=== PATIENT | female | born 1935 | race Caucasian/White ===

== ENCOUNTER → 2019-06-21 | Outpatient (CLI) | payer MEDICARE ==
[~2019-06-21] MED LIST: ABAC300; ALBU90OI6; AMLO5 MT; ASPI81CH MT; BUDE10.22 INH; CALC1.25T PO; CHOL10002 PO; CYAN100 PO; ERGO400 PO; Ester-C 500 MG1 EACH PO; Fish Oil500 MG PO; GLIP2.5ER; GLIP2.5ER MT; Hydrochlorothia50 MG MT; LEVFLO250 PO; LISI20 MT; LOVA40 MT; METF500 MT; PROACE100 PO; PYRI100 PO; RXPROACE PO; TOCO400 PO; ZAFI20 MT; [UNRECOGNIZED DRUG - OTHER] TOP
== END | disposition home or self-care (01) ==
LOC: LAB SHORT 12:03 → PLD 12:03
DX: C44.01 Basal cell carcinoma of skin of lip (principal); C44.319 Basal cell carcinoma of skin of other parts of face
CPT/HCPCS: 88305

== ENCOUNTER → 2019-12-20 | Outpatient (CLI) | payer MEDICARE ==
[~2019-12-20] MED LIST changes: +METO25ER PO
== END | disposition home or self-care (01) ==
LOC: PLD 11:12 → LAB SHORT 11:12
DX: D04.62 Carcinoma in situ of skin of left upper limb, including shoulder (principal); L57.0 Actinic keratosis
CPT/HCPCS: 88305

== ENCOUNTER → 2020-03-19 | Outpatient (CLI) | payer MEDICARE | END | disposition home or self-care (01) | LOC: PLD 11:45 → LAB SHORT 11:45 | DX: D48.5 Neoplasm of uncertain behavior of skin (principal) | CPT/HCPCS: 88305 ==

== ENCOUNTER → 2020-08-10 | Outpatient (CLI) | payer MEDICARE ==
[2020-08-10 13:54] LABS: BASOPHILS ABSOLUTE AUTO 0.07 K/mm3 (0.00-0.23); BASOPHILS PERCENT AUTO 1 % (0-2); EOSINOPHILS PERCENT AUTO 5 % (0-6); Hematocrit 40.1 % (33.0-51.0); Hemoglobin 12.6 g/dL (11.5-16.0); IMMATURE GRAN ABSOLUTE AUTO 0.04 K/mm3 (0.00-0.10); IMMATURE GRAN PERCENT AUTO 0 % (0-1); LYMPHOCYTES ABSOLUTE AUTO 1.14 K/mm3 (0.84-5.20); LYMPHOCYTES PERCENT AUTO 10 % (21-46); MONOCYTES ABSOLUTE AUTO 0.92 K/mm3 (0.16-1.47); MONOCYTES PERCENT AUTO 8 % (4-13); Mean Corpuscular HGB 26.9 pg (26.0-34.0); Mean Corpuscular HGB Conc 31.4 g/dL (31.5-36.5); Mean Corpuscular Volume 86 fL (80-100); Mean Platelet Volume 9.7 fL (9.1-12.4); NEUTROPHILS ABSOLUTE AUTO 8.32 K/mm3 (1.96-9.15); NEUTROPHILS PERCENT AUTO 76 % (41-73); Platelet Count 243 K/mm3 (150-400); RDW Coefficient Variation 13.2 % (11.7-14.2); RDW Standard Deviation 41.2 fL (35.1-46.3); Red Blood Cell Count 4.68 M/mm3 (3.80-5.20); White Blood Cell Count 10.99 K/mm3 (4.00-11.30)
[2020-08-10 14:04] LABS: Albumin, Blood 3.6 g/dL (3.4-5.0); Bilirubin, Total 0.5 mg/dL (0.1-1.0); Bun/Creatinine Ratio 23.8 (12.0-20.0); Calcium, Blood 9.2 mg/dL (8.5-10.1); Creatinine, Blood 1.51 mg/dL (0.40-1.00); Globulin, Blood 3.6 g/dL (2.2-4.0); Potassium, Blood 4.3 mmol/L (3.5-5.5); Total Protein, Blood 7.2 g/dL (6.4-8.2)
== END | disposition home or self-care (01) ==
LOC: LAB SHORT 11:25 → LAB 11:25
PROVIDERS: Physician Assistant
DX: R10.84 Generalized abdominal pain (principal)
CPT/HCPCS: 80053; 85025

== ENCOUNTER 2020-11-20 10:26 | Day surgery (SDC) | payer MEDICARE ==
[~2020-11-20] VITALS: Ht 160 cm; Wt 56.3 kg
--- NOTE | 2020-11-20 12:14 | NUR ---
11/20/20 1214 Cara Sow ORAL SUCTIONING IN RECOVERY, PT ASLEEP WITH PRODUCTIVE COUGH. OXYGEN SATURATION RANGING FROM 87%-93%. PT DIFFICULT TO AROUSE. CONTINUED ORAL SUCTIONING. PT REPOSITIONED AND BOOSTED IN BED WITH THIS RN & PHYSICIAN. PT RESPONDS TO VERBAL STIMULI FOR SHORT AMOUNTS OF TIME. UNABLE TO OPEN EYES FOR ANY PERIOD OF TIME. PT CONTINUES TO COUGH, PRODUCING THICK TRANSPARENT YELLOW TINGED MUCUS. ORAL SUCTIONING, AND INSTURCTION TO OPEN EYES, DEEP BREATH & COUGH.
== END 2020-11-20 12:50 | disposition home or self-care (01) ==
LOC: ORSCSDS 10:26
PROVIDERS: Surgery
PROC: 0DB48ZX Excision of Esophagogastric Junction, Via Natural or Artificial Opening Endoscopic, Diagnostic (ICD-10-PCS; principal; 2020-11-20 11:30)
DX: K31.89 Other diseases of stomach and duodenum (principal); R93.3 Abnormal findings on diagnostic imaging of other parts of digestive tract; K22.2 Esophageal obstruction; I10 Essential (primary) hypertension; E78.00 Pure hypercholesterolemia, unspecified; E11.9 Type 2 diabetes mellitus without complications; Z79.82 Long term (current) use of aspirin; Z79.4 Long term (current) use of insulin; Z79.899 Other long term (current) drug therapy
CPT/HCPCS: 82947; 88305; J2704; J7120

== ENCOUNTER → 2021-02-25 | Outpatient (CLI) | payer MEDICARE | LOC: LAB SHORT 11:36 → LAB 11:36 | DX: D48.5 Neoplasm of uncertain behavior of skin (principal); L98.9 Disorder of the skin and subcutaneous tissue, unspecified | CPT/HCPCS: 88305 ==

== ENCOUNTER → 2021-06-25 | Outpatient (CLI) | payer MEDICARE | END | disposition home or self-care (01) | LOC: LAB SHORT 15:20 | DX: C44.319 Basal cell carcinoma of skin of other parts of face (principal); L57.0 Actinic keratosis | CPT/HCPCS: 88305 ==

== ENCOUNTER → 2021-08-06 | Outpatient (CLI) | payer MEDICARE | END | disposition home or self-care (01) | LOC: LAB SHORT 06:00 | DX: J45.909 Unspecified asthma, uncomplicated (principal); R93.89 Abnormal findings on diagnostic imaging of other specified body structures | CPT/HCPCS: 87070; 87205 ==

== ENCOUNTER → 2021-08-13 | Outpatient (CLI) | payer MEDICARE ==
[2021-08-13 16:48] LABS: Source, Urine Clean Catch
[2021-08-13 17:29] LABS: Appearance, Urine Clear (Clear); Bilirubin, Urine Neg (Neg); Blood, Urine Neg (Neg); Color, Urine Yellow (P-Yellow); Glucose Qualitative, Urine Neg (Neg); Ketones, Urine Neg (Neg); Leukocyte Esterase, Urine Neg (Neg); Nitrite, Urine Neg (Neg); Protein, Urine 2+ (Neg); Specific Gravity, Urine 1.015 (1.003-1.022); Urobilinogen, Urine NORM (Normal)
[2021-08-13 17:41] LABS: Bacteria Few /hpf; Red Blood Cells, Urine 0-2 /hpf (0-2); Squamous Epithelial Cells Few /hpf (Few); White Blood Cells, Urine 0-2 /hpf (0-5)
[2021-08-13 20:42] LABS: Creatinine, Urine Random 40.2 mg/dL (27.00-270.00); Protein/Creat Ratio, Ur Random 1.5
== END | disposition home or self-care (01) ==
LOC: LAB SHORT 12:00
PROVIDERS: Internal Medicine Nephrology
DX: N18.32 Chronic kidney disease, stage 3b (principal)
CPT/HCPCS: 81001; 82570; 84156

== ENCOUNTER → 2021-08-27 | Outpatient (CLI) | payer MEDICARE | END | disposition home or self-care (01) | LOC: LAB 08:23 → PLD 08:23 → LAB SHORT 08:23 | DX: L57.0 Actinic keratosis (principal) | CPT/HCPCS: 88305 ==

== ENCOUNTER 2022-04-24 09:23 | Emergency (ER) | payer MEDICARE ==
[~2022-04-24] VITALS: Ht 152.4 cm; Wt 49.9 kg
[2022-04-24 11:06] LABS: Influenza A, PCR NEGATIVE (NEGATIVE); Influenza B, PCR NEGATIVE (NEGATIVE); Resp Syncytial Virus, PCR NEGATIVE (NEGATIVE)
[2022-04-24 11:23] LABS: SARS-Cov-2 (COVID-19) PCR, MMC POSITIVE (NEGATIVE)
[2022-04-24] MEDS ORDERED: PAXLOVID 150-11 EACH PO (12:02)
== END 2022-04-24 10:20 | disposition home or self-care (01) ==
LOC: ER 09:23
PROVIDERS: Physician Assistant
DX: U07.1 COVID-19 (principal); E11.9 Type 2 diabetes mellitus without complications; I10 Essential (primary) hypertension; J45.909 Unspecified asthma, uncomplicated; Z79.899 Other long term (current) drug therapy
CPT/HCPCS: 0241U; 99282

== ENCOUNTER 2022-11-04 12:25 | Day surgery (SDC) | payer OTHER ==
[~2022-11-04 12:25] MED LIST changes: +PAXLOVID 150-11 EACH PO
== END 2022-11-04 12:42 | disposition home or self-care (01) ==
LOC: ORSCSDS 12:25
DX: H25.11 Age-related nuclear cataract, right eye (principal); Z53.9 Procedure and treatment not carried out, unspecified reason
CPT/HCPCS: J2001; J3301; J7040

== ENCOUNTER 2022-12-18 07:10 | Day surgery (SDC) | payer OTHER ==
[~2022-12-18] VITALS: Ht 152.4 cm; Wt 50.3 kg
[2022-12-18] MEDS ORDERED: ASPI81CH PO (07:41)
--- NOTE | 2022-12-18 07:53 | NUR ---
12/18/22 0753 Noe Rodriguez RIGHT EYE VERIFIED FOR PROCEDURE PER PT AND CONSENT. TETRACANE PLACED IN RIGHT EYE AT 0732. PLEGET FOAM PLACED IN RIGHT EYE AT 0733. PT TOLERATED WELL. CALL LIGHT WITHIN REACH.
[2022-12-18 08:55] VITALS: BP 124/74
--- NOTE | 2022-12-18 09:06 | NUR ---
12/18/22 0906 Saige Roth IV REMOVED, CANNULA INTACT. PT LACY WELL. IV SITE WNL.
== END 2022-12-18 09:34 | disposition home or self-care (01) ==
LOC: ORSCSDS 07:10
PROVIDERS: Ophthalmology
PROC: 08RJ3JZ Replacement of Right Lens with Synthetic Substitute, Percutaneous Approach (ICD-10-PCS; principal; 2022-12-18 08:30)
DX: E11.36 Type 2 diabetes mellitus with diabetic cataract (principal); H25.11 Age-related nuclear cataract, right eye; I12.9 Hypertensive chronic kidney disease with stage 1 through stage 4 chronic kidney disease, or unspecified chronic kidney disease; E11.22 Type 2 diabetes mellitus with diabetic chronic kidney disease; N18.30 Chronic kidney disease, stage 3 unspecified; E78.00 Pure hypercholesterolemia, unspecified; D50.9 Iron deficiency anemia, unspecified; Z79.82 Long term (current) use of aspirin; Z79.4 Long term (current) use of insulin; Z79.899 Other long term (current) drug therapy
CPT/HCPCS: 82947; J2250; J3010; J3301; J7040; V2632

== ENCOUNTER 2022-12-25 07:07 | Day surgery (SDC) | payer OTHER ==
[~2022-12-25] VITALS: Ht 157.5 cm; Wt 50.7 kg
[~2022-12-25 07:07] MED LIST changes: +ASPI81CH PO
--- NOTE | 2022-12-25 07:39 | NUR ---
12/25/22 0739 Rama Vilchis TETRACAINE PLACED IN LEFT EYE AT 0728 PLEDGET PLACED IN LEFT EYE AT 0730 PATIENT TOLERATED WELL
--- NOTE | 2022-12-25 09:33 | NUR ---
12/25/22 0933 Kyaw Orosco IV REMOVED INTACT. SITE WNL.
[2022-12-25 09:55] VITALS: BP 162/67
== END 2022-12-25 09:45 | disposition home or self-care (01) ==
LOC: ORSCSDS 07:07
PROVIDERS: Ophthalmology
PROC: 08RK3JZ Replacement of Left Lens with Synthetic Substitute, Percutaneous Approach (ICD-10-PCS; principal; 2022-12-25 08:30)
DX: H25.12 Age-related nuclear cataract, left eye (principal); Z96.1 Presence of intraocular lens; E11.22 Type 2 diabetes mellitus with diabetic chronic kidney disease; I12.9 Hypertensive chronic kidney disease with stage 1 through stage 4 chronic kidney disease, or unspecified chronic kidney disease; N18.9 Chronic kidney disease, unspecified; J44.9 Chronic obstructive pulmonary disease, unspecified; Z79.899 Other long term (current) drug therapy; Z79.82 Long term (current) use of aspirin
CPT/HCPCS: 82947; J2001; J2250; J3010; J3301; J7040; V2632

== ENCOUNTER 2023-02-07 14:51 | Emergency (ER) | payer OTHER ==
[~2023-02-07] VITALS: Ht 152.4 cm; Wt 49.4 kg
[2023-02-07 14:57] VITALS: BP 219/99
[2023-02-07 15:21] LABS: BASOPHILS ABSOLUTE AUTO 0.05 K/mm3 (0.00-0.23); BASOPHILS PERCENT AUTO 0 % (0-2); EOSINOPHILS ABSOLUTE AUTO 0.57 K/mm3 (0.00-0.68); EOSINOPHILS PERCENT AUTO 3 % (0-6); Hematocrit 37.4 % (33.0-51.0); Hemoglobin 11.5 g/dL (11.5-16.0); IMMATURE GRAN ABSOLUTE AUTO 0.08 K/mm3 (0.00-0.10); IMMATURE GRAN PERCENT AUTO 0 % (0-1); LYMPHOCYTES ABSOLUTE AUTO 0.82 K/mm3 (0.84-5.20); LYMPHOCYTES PERCENT AUTO 4 % (21-46); MONOCYTES ABSOLUTE AUTO 1.18 K/mm3 (0.16-1.47); MONOCYTES PERCENT AUTO 6 % (4-13); Mean Corpuscular HGB 25.3 pg (26.0-34.0); Mean Corpuscular HGB Conc 30.7 g/dL (31.5-36.5); Mean Corpuscular Volume 82 fL (80-100); Mean Platelet Volume 9.3 fL (9.1-12.4); NEUTROPHILS ABSOLUTE AUTO 15.98 K/mm3 (1.96-9.15); NEUTROPHILS PERCENT AUTO 86 % (41-73); Platelet Count 329 K/mm3 (150-400); RDW Coefficient Variation 13.7 % (11.7-14.2); RDW Standard Deviation 41.1 fL (35.1-46.3); Red Blood Cell Count 4.54 M/mm3 (3.80-5.20); White Blood Cell Count 18.68 K/mm3 (4.00-11.30)
[2023-02-07 16:01] LABS: Albumin, Blood 2.7 g/dL (3.4-5.0); Albumin/Globulin Ratio 0.5 (0.8-1.8); Bilirubin, Total 0.2 mg/dL (0.1-1.0); Bun/Creatinine Ratio 23.2 (12.0-20.0); Calcium, Blood 8.8 mg/dL (8.5-10.1); Creatinine, Blood 1.38 mg/dL (0.40-1.00); Magnesium, Blood 1.6 mg/dL (1.6-2.4); Potassium, Blood 4.7 mmol/L (3.5-5.5); Total Protein, Blood 7.7 g/dL (6.4-8.2)
== END 2023-02-07 16:32 | disposition left against medical advice (07) ==
LOC: ER 14:51
PROVIDERS: Physician Assistant
DX: R19.7 Diarrhea, unspecified (principal); Z53.21 Procedure and treatment not carried out due to patient leaving prior to being seen by health care provider
CPT/HCPCS: 71046; 80053; 83735; 85025; 99284-25

== ENCOUNTER 2023-05-20 15:04 | Inpatient (IN) | payer OTHER ==
[~2023-05-20] VITALS: Ht 157.5 cm; Wt 46.0 kg
[~2023-05-20 15:04] MED LIST changes: -AMLO5 MT; +AMLO5 PO; -LOVA40 MT; +LOVA40 PO; -ZAFI20 MT; +ZAFI20 PO
[2023-05-20 15:52] LABS: BASOPHILS ABSOLUTE AUTO 0.03 K/mm3 (0.00-0.23); BASOPHILS PERCENT AUTO 0 % (0-2); EOSINOPHILS ABSOLUTE AUTO 0.01 K/mm3 (0.00-0.68); EOSINOPHILS PERCENT AUTO 0 % (0-6); Hematocrit 38.9 % (33.0-51.0); Hemoglobin 11.7 g/dL (11.5-16.0); IMMATURE GRAN ABSOLUTE AUTO 0.06 K/mm3 (0.00-0.10); IMMATURE GRAN PERCENT AUTO 1 % (0-1); LYMPHOCYTES ABSOLUTE AUTO 1.16 K/mm3 (0.84-5.20); LYMPHOCYTES PERCENT AUTO 10 % (21-46); MONOCYTES ABSOLUTE AUTO 1.29 K/mm3 (0.16-1.47); MONOCYTES PERCENT AUTO 11 % (4-13); Mean Corpuscular HGB 25.3 pg (26.0-34.0); Mean Corpuscular HGB Conc 30.1 g/dL (31.5-36.5); Mean Corpuscular Volume 84 fL (80-100); NEUTROPHILS ABSOLUTE AUTO 9.53 K/mm3 (1.96-9.15); NEUTROPHILS PERCENT AUTO 79 % (41-73); Platelet Count 177 K/mm3 (150-400); RDW Coefficient Variation 15.7 % (11.7-14.2); RDW Standard Deviation 47.6 fL (35.1-46.3); Red Blood Cell Count 4.63 M/mm3 (3.80-5.20); White Blood Cell Count 12.08 K/mm3 (4.00-11.30)
[2023-05-20 16:12] LABS: Albumin, Blood 2.7 g/dL (3.4-5.0); Albumin/Globulin Ratio 0.5 (0.8-1.8); Bilirubin, Total 0.3 mg/dL (0.1-1.0); Bun/Creatinine Ratio 32.3 (12.0-20.0); Calcium, Blood 8.5 mg/dL (8.5-10.1); Creatinine, Blood 1.67 mg/dL (0.40-1.00); Potassium, Blood 4.2 mmol/L (3.5-5.5); Total Protein, Blood 7.7 g/dL (6.4-8.2)
[2023-05-20 16:49] LABS: Influenza B, PCR NEGATIVE (NEGATIVE); Resp Syncytial Virus, PCR NEGATIVE (NEGATIVE); SARS-Cov-2 (COVID-19) PCR, MMC NEGATIVE (NEGATIVE)
[2023-05-20 16:51] LABS: Influenza A, PCR POSITIVE (NEGATIVE)
[2023-05-20] MEDS ORDERED: LOSA50 PO (20:46)
[2023-05-20] MEDS ORDERED: MONT10T PO (20:46)
[2023-05-20] MEDS ORDERED: SYMBICORT 80-10.2 GM INH (20:47)
[2023-05-20] MEDS ORDERED: Lovastatin20 MG PO (20:48)
[2023-05-20] MEDS ORDERED: HYDROCHLOROTH12.5 MG PO (20:49)
[2023-05-20] MEDS ORDERED: NOVOLOG FL100 UNIT/3 SC (20:54)
[2023-05-20] MEDS ORDERED: NOVOLIN N100 UNIT/2 SC (20:54)
[2023-05-20 21:42] VITALS: BP 111/43
--- NOTE | 2023-05-20 21:59 | NUR ---
ADMIT NOTE PT ARRIVED TO FLOOR VIA GURJEANNETTE. HANDOFF RECEIVED FROM NEWSPAPER VENDORMRACUS TAYLOR. PT ORIENTED TO UNIT. PERSONAL POSSESSIONS WITH PT. CALL BUTTON WITHIN REACH. IV FLUIDS INFUSING ORDERED.
--- NOTE | 2023-05-21 04:15 | NUR ---
SHIFT SUMMARY ADMITTED FOR HYPOXIA. FULL CODE. DROPLET/CONTACT PRECAUTIONS FOR INFLUENZA A. REPORTED DIARRHEA FOR THE PAST WEEK. PLAN IS FOR TAMIFLU AND STEROID RX, WELL RESPIRATORY TX'S. SHE IS ADA DIET, A&O X4, STANDBY ASSIST - BRP. AC CBG'S - LOW SS. NS INFUSING ORDERED. SHE IS ON 4 LPM O2, RA @ BASELINE. SHE LIVES AT HOME WITH HER .
[2023-05-21 05:00] VITALS: BP 117/52
[2023-05-21 05:03] LABS: Hemoglobin 10.2 g/dL (11.5-16.0); Mean Corpuscular HGB 25.4 pg (26.0-34.0); Mean Corpuscular HGB Conc 29.1 g/dL (31.5-36.5); Mean Corpuscular Volume 87 fL (80-100); Mean Platelet Volume 10.4 fL (9.1-12.4); Platelet Count 155 K/mm3 (150-400); RDW Coefficient Variation 15.8 % (11.7-14.2); RDW Standard Deviation 50.7 fL (35.1-46.3); Red Blood Cell Count 4.02 M/mm3 (3.80-5.20); White Blood Cell Count 13.81 K/mm3 (4.00-11.30)
[2023-05-21 07:40] VITALS: BP 120/55
[2023-05-21 09:43] LABS: Glucose, Blood 682 mg/dL (70-99)
[2023-05-21 13:11] LABS: Base Excess Venous -2.8 mmol/L; Bicarbonate Venous 21.7 mmol/L (24.0-30.0); PCO2 Venous 58.1 mmHg (38-42); pH Blood Venous 7.24 (7.34-7.37)
[2023-05-21 13:57] LABS: Magnesium, Blood 2.3 mg/dL (1.6-2.4)
[2023-05-21 14:03] LABS: Albumin, Blood 2.4 g/dL (3.4-5.0); Albumin/Globulin Ratio 0.5 (0.8-1.8); Beta-hydroxybutyrate 0.9 mg/dL (0.2-2.8); Bilirubin, Total 0.3 mg/dL (0.1-1.0); Bun/Creatinine Ratio 30.3 (12.0-20.0); Calcium, Blood 7.9 mg/dL (8.5-10.1); Creatinine, Blood 2.08 mg/dL (0.40-1.00); Globulin, Blood 4.4 g/dL (2.2-4.0); Phosphorus, Blood 4.6 mg/dL (2.5-4.9); Potassium, Blood 4.4 mmol/L (3.5-5.5); Total Protein, Blood 6.8 g/dL (6.4-8.2)
[2023-05-21 14:07] VITALS: BP 119/58
[2023-05-21 15:44] VITALS: BP 105/53
--- NOTE | 2023-05-21 17:34 | NUR ---
REPORT RECEIVED VERIFIED, A/O AND HAS INCREASING IN WEAKNESS. PT ASSISTED OUT OF BED TO BSC HAS SMALL BM AND ABOUT 400MLS URINE PT NEEDED MINIMAL ASSIST. BS WAS ELEVATED THROUGHOUT SHIFT THROUGH THE MORNING MD WAS AWARE THE WHOLE TIMED AND SEVERAL ATTEMPS TO DECREASE SUGAR WAS MADE. NON AGRESSIVE RESPONSE TO LOWER BS WAS USED DUE TO FRAILE STATE. IN THE AFTERNOON PT BLOOD SUGAR WAS MUCH BETTER AND INTO THE 300S. DUE TO PT STATE SHE WAS PLACED ON BIPAP AND HAS BEEN LACY WELL EVER SINCE, FAMILY HAS BEEN AT BEDSIDE VERY THANKFUL AND HELPFUL WITH PT CARE. WILL CONT TO MONITOR. AT BEDSIDE .
[2023-05-21 18:01] LABS: Source, Urine Straight Cath
[2023-05-21 18:02] LABS: Base Excess Venous -2.8 mmol/L; Bicarbonate Venous 21.8 mmol/L (24.0-30.0); PCO2 Venous 55.8 mmHg (38-42); pH Blood Venous 7.25 (7.34-7.37)
[2023-05-21 18:26] LABS: Appearance, Urine Clear (Clear); Bilirubin, Urine Neg (Neg); Blood, Urine Neg (Neg); Color, Urine Yellow (P-Yellow); Glucose Qualitative, Urine 4+ (Neg); Ketones, Urine Neg (Neg); Leukocyte Esterase, Urine 1+ (Neg); Nitrite, Urine Neg (Neg); Protein, Urine 2+ (Neg); Urobilinogen, Urine NORM (Normal)
[2023-05-21 18:34] LABS: Bacteria Mod /hpf; Hyaline Casts 0-2 /lpf (0-2)
[2023-05-21 18:35] LABS: Amorphous Light (0-Heavy); Red Blood Cells, Urine Not Seen /hpf (0-2); Squamous Epithelial Cells Rare /hpf (Few)
[2023-05-21 21:26] VITALS: BP 96/65
[2023-05-21 23:34] VITALS: BP 104/52
[2023-05-22 03:44] VITALS: BP 100/57
--- NOTE | 2023-05-22 05:04 | NUR ---
SHIFT SUMMARY NO ACUTE CHANGES OVERNIGHT. PT A&O X3-4. FORGETFUL AT TIMES WHEN LETHARGIC AFTER BEING WOKEN UP. PT APPEARED TO HAVE SLEPT MOST OF THIS SHIFT. PT NEEDING 4L VIA NC WHILE AWAKE, AND WEARING BIPAP WITH 4L BLEED IN WHILE SLEEPING. PT WORE BIPAP FOR MAJORITY OF SHIFT. REPEAT VBG ORDERED AFTER THIS RN SPOKE TO MD SINGH. OTHERWISE VSS. NO TELE. PT UP WITH SBA TO BSC. VOIDING WELL. LR INFUSING PER EMAR. COARSE LS T/O. PT WITH MOIST/NONPRODUCTIVE COUGH BUT UNABLE PRODUCE SPUTUM FOR SAMPLE. ISOLATION PRECAUTIONS MAINTAINED FOR FLU. BED IN LOWEST POSITION AND CALL LIGHT WITHIN REACH. THIS RN WILL REPORT TO ONCOMING DAYSHIFT RN.
[2023-05-22 05:20] LABS: Base Excess Venous -0.8 mmol/L; PCO2 Venous 59.9 mmHg (38-42); pH Blood Venous 7.25 (7.34-7.37)
--- NOTE | 2023-05-22 05:35 | NUR ---
PATIENT UPDATE VBG RESULTS NOTE UNCHANGED CRITICAL PH OF 7.25, SLIGHTLY WORSE CO2 AT 59.9. CALL PLACED TO MD SINGH, NO NEW ORDERS AT THIS TIME. PT CONTINUES TO BE ON BIPAP. RT ABRAM TO BEDSIDE AFTER VBG RESULTS COMPLETED TO ADJUST BIPAP SETTINGS. OTHERWISE NO NEW CHANGES. PT CONTINUES TO BE ANSWERING QUESTIONS APPROPRIATELY.
[2023-05-22 05:54] LABS: BASOPHILS ABSOLUTE AUTO 0.03 K/mm3 (0.00-0.23); BASOPHILS PERCENT AUTO 0 % (0-2); EOSINOPHILS ABSOLUTE AUTO 0.02 K/mm3 (0.00-0.68); EOSINOPHILS PERCENT AUTO 0 % (0-6); Hematocrit 35.9 % (33.0-51.0); Hemoglobin 10.5 g/dL (11.5-16.0); IMMATURE GRAN ABSOLUTE AUTO 0.16 K/mm3 (0.00-0.10); IMMATURE GRAN PERCENT AUTO 1 % (0-1); LYMPHOCYTES PERCENT AUTO 7 % (21-46); MONOCYTES ABSOLUTE AUTO 1.05 K/mm3 (0.16-1.47); MONOCYTES PERCENT AUTO 5 % (4-13); Mean Corpuscular HGB 24.9 pg (26.0-34.0); Mean Corpuscular HGB Conc 29.2 g/dL (31.5-36.5); Mean Corpuscular Volume 85 fL (80-100); Mean Platelet Volume 10.4 fL (9.1-12.4); NEUTROPHILS ABSOLUTE AUTO 18.72 K/mm3 (1.96-9.15); NEUTROPHILS PERCENT AUTO 87 % (41-73); Platelet Count 158 K/mm3 (150-400); RDW Coefficient Variation 15.6 % (11.7-14.2); RDW Standard Deviation 48.2 fL (35.1-46.3); Red Blood Cell Count 4.22 M/mm3 (3.80-5.20); White Blood Cell Count 21.58 K/mm3 (4.00-11.30)
[2023-05-22 06:22] LABS: Albumin, Blood 2.2 g/dL (3.4-5.0); Albumin/Globulin Ratio 0.5 (0.8-1.8); Bilirubin, Total 0.2 mg/dL (0.1-1.0); Bun/Creatinine Ratio 30.2 (12.0-20.0); Calcium, Blood 8.4 mg/dL (8.5-10.1); Creatinine, Blood 2.35 mg/dL (0.40-1.00); Globulin, Blood 4.1 g/dL (2.2-4.0); Total Protein, Blood 6.3 g/dL (6.4-8.2)
[2023-05-22 07:44] VITALS: BP 111/90
[2023-05-22 10:45] VITALS: BP 108/61
--- NOTE | 2023-05-22 11:10 | NUR ---
ASSUMPTION OF CARE this rn assumed care at approx 1030. patient arrived from medical floor and transfered to pcu bed with a stand by assist. vital signs stable. tele sinus tach 107. spo2 >90% on bipap. patient is alert and oriented x4. perrla. patient did not know the date but knew the year. patient reports no pain, chest pain/pressure or shortness of breath. lungs bilaterally are coarse, expirtory wheeze with crackles throughout. skin has reddness to coccyx mepilex in place, and repositioned q2 to prevent skin breakdown. see shift assessment from this rn for further detials. family updated on changes and plan of care. patient and family aware and oriented to pcu unit and vitals. plan of care is up to date at this time.
--- NOTE | 2023-05-22 11:10 | NUR ---
transfer note- PT TRANSFERED TO PCU. WHEN ASSISTING TO THE BATHROOM NOTED SHE HAD REDNESS IN THE GLUTEAL FOLDS, COVERED WITH MEPILEX. PASSED IN VERBAL REPORT TO PILL MACHINE OPERATOR THE AREA HAS A YEASTY SMELL. SPOKE TO DR PALACIOS PT BP HAS BEEN ON THE LOWER SIDE, HELD MORNING AMLODIPINE. HE AGREED TO HOLD IT AT THIS TIME.
[2023-05-22 12:07] LABS: Base Excess Venous -0.2 mmol/L; Bicarbonate Venous 23.5 mmol/L (24.0-30.0); PCO2 Venous 55.7 mmHg (38-42); pH Blood Venous 7.28 (7.34-7.37)
--- NOTE | 2023-05-22 12:17 | NUR ---
CRITICAL LAB this rn spoke with md holland about patient critical ph at 7.28, no new orders placed at this time.
--- NOTE | 2023-05-22 14:59 | NUR ---
Review Code Status and Goals of Care Met with pt, , son and g-dtr in pt's room. Pt sitting at 45* angle in bed. Oxygen NC in place. Latesha is A/O x3. She does not appear to comprehend the severity of her condition. , Keanu reports pt was still talking when he brought her to the hospital and SPO2 was in the 50's. Latesha is non-comliant with oxygen at home. Keanu additionally reports, "She has been a couch potato for the last 3 months. She doesn't cook or clean or drive anymore." He endorses Latesha has lost at least 15 pounds in the last 3 mths and has a VERY poor appetite. He has been working from home, he fears leaving Latesha alone. 3 mo ago estimated PPS 80%. 1 wk ago estimated PPS 50%. Reviewed code status, what CPR entails, what DNR and intubation are. Pt wants to remain a FULL CODE. "If you can save me then do it." Latesha is hesitant to make a decision about intubation. Dr. Caba arived to review diagnostic data and advise pt of planned transfer to PCU for closer monitoring. During this PC visit pt's sonEvan had a syncopal episode. printing machinist called to room to assist pt's son to the ED. Pt denies distress re: son's event. She was jovial about it. Assisted Primary RN with pt's personal care prior to transfer to PCU.
[2023-05-22 16:21] VITALS: BP 110/68
--- NOTE | 2023-05-22 17:02 | NUR ---
shift summary patient family at bedside majority of the day. this rn educated the patient and patient family on isolation precautions, and informed them that they can not be wondering the halls not wearing a mask and not wearing a mask in the room. that if they did not want to wear a mask in the room that they need to wear a mask when leaving the room and to wash their hands. family verbalized understanding. despite this education family continues to not follow the isolation precautions. this rn provided education to family. family would wonder into the hallways looking for staff to help with patient care. family and patient educated news operations manager light, and despite multiple education sessions with the patient and family, family continued to wonder the halls seeking staff. this rn reinforced education, as well did chargeback analyst and employee benefits manager. patient and family becoming anxious and worried about the patient face from the bipap, this rn provided education to the family and patient. family and patient continued to be anxious and come out of the room. chargeback analyst in room and discussing rationale for wearing mask. this rn called md holland twice, once around 1245, and again at 1600 and informed him that the patient is become irriated from wearing the mask, that the settings are the same as they were on medical floor, and that the patient family is become anxious. md holland ordered a vbg repeat at 1800. chargeback analyst in room and educated patient and patient family.
[2023-05-22 18:19] LABS: Base Excess Venous -0.8 mmol/L; Bicarbonate Venous 23.3 mmol/L (24.0-30.0); pH Blood Venous 7.32 (7.34-7.37)
[2023-05-22 20:00] VITALS: BP 112/71
[2023-05-23 00:15] VITALS: BP 113/65
[2023-05-23 04:15] VITALS: BP 142/66
[2023-05-23 04:55] LABS: Base Excess Venous 1.3 mmol/L; Bicarbonate Venous 24.7 mmol/L (24.0-30.0); PCO2 Venous 49.9 mmHg (38-42); pH Blood Venous 7.34 (7.34-7.37)
[2023-05-23 04:57] LABS: BASOPHILS ABSOLUTE AUTO 0.02 K/mm3 (0.00-0.23); BASOPHILS PERCENT AUTO 0 % (0-2); EOSINOPHILS ABSOLUTE AUTO 0.07 K/mm3 (0.00-0.68); EOSINOPHILS PERCENT AUTO 0 % (0-6); Hemoglobin 9.9 g/dL (11.5-16.0); IMMATURE GRAN ABSOLUTE AUTO 0.17 K/mm3 (0.00-0.10); IMMATURE GRAN PERCENT AUTO 1 % (0-1); LYMPHOCYTES ABSOLUTE AUTO 1.57 K/mm3 (0.84-5.20); LYMPHOCYTES PERCENT AUTO 10 % (21-46); MONOCYTES ABSOLUTE AUTO 0.82 K/mm3 (0.16-1.47); MONOCYTES PERCENT AUTO 5 % (4-13); Mean Corpuscular HGB 24.9 pg (26.0-34.0); Mean Corpuscular Volume 83 fL (80-100); Mean Platelet Volume 10.4 fL (9.1-12.4); NEUTROPHILS ABSOLUTE AUTO 13.76 K/mm3 (1.96-9.15); NEUTROPHILS PERCENT AUTO 84 % (41-73); Platelet Count 186 K/mm3 (150-400); RDW Coefficient Variation 15.7 % (11.7-14.2); RDW Standard Deviation 47.4 fL (35.1-46.3); Red Blood Cell Count 3.97 M/mm3 (3.80-5.20); White Blood Cell Count 16.41 K/mm3 (4.00-11.30)
--- NOTE | 2023-05-23 05:40 | NUR ---
SHIFT SUMMARY PT A&O X4, ALTHOUGH SOME PERIODS OF CONFUSION OR FORGETFULNESS NOTED T/O THE NIGHT SUCH PT CONFUSED ON WHERE SHE IS OR REPEATING HERSELF A FEW TIMES. PT VSS; SBP 1 TEENS, SINUS RHYTHM 80 - 90'S, AFEBRILE. PT ON BIPAP MOST OF THE SHIFT WITH SMALL BREAKS FOR WATER OR PT CARE. PT TOLERATING MASK FAIRLY, AT TIMES MILDLY ANXIOUS ABOUT MASK AND "SORENESS OF NOSE". WHEN PT IS TAKING A BREAK, PT PLACED ON 4LPM NC. WHEN PT OFF BIPAP, SPO2 DECREASES 84 - 88%. PT CONTINUES TO HAVE COUGH, ALTHOUGH "NOT MUCH PRODUCTION". PT DENIES CP/PRESSURE, DIZZINESS, N/V. PT UP TO BSC FREQUENTLY AND URGENTLY THROUGHOUT THE NIGHT; PT VOIDING SMALL AMOUNTS EACH TIME. PT DENIES PAIN/BURNING WHEN VOIDING. PT SBA D/T WEAKNESS AND CORD MANAGEMENT, PT TOLERATING FAIRLY. NO BM THIS SHIFT. MEPILEX IN PLACE ON COCCYX; C/D/I. IVF AND ABX PER EMAR. PT ABLE TO MAKE NEEDS KNOWN. CALL LIGHT IN REACH. WILL UPDATE ONCOMING RN.
[2023-05-23 06:12] LABS: Albumin, Blood 2.2 g/dL (3.4-5.0); Albumin/Globulin Ratio 0.5 (0.8-1.8); Bilirubin, Total 0.3 mg/dL (0.1-1.0); Bun/Creatinine Ratio 32.3 (12.0-20.0); Calcium, Blood 8.3 mg/dL (8.5-10.1); Creatinine, Blood 2.17 mg/dL (0.40-1.00); Globulin, Blood 4.1 g/dL (2.2-4.0); Magnesium, Blood 1.8 mg/dL (1.6-2.4); Total Protein, Blood 6.3 g/dL (6.4-8.2)
[2023-05-23 09:02] VITALS: BP 141/84
[2023-05-23 12:03] VITALS: BP 155/7
[2023-05-23 16:13] VITALS: BP 125/97
--- NOTE | 2023-05-23 18:01 | NUR ---
ASSUMED CARE OF PT AT 0700 THIS AM. PT IS A&OX3, ABLE TO COMMUNICATE APPROPRIATELY AND USE CALL LIGHT FOR NEEDS. PT'S AT BEDSIDE, APPROPRIATE AND CALM WITH STAFF, ASSISTING PT WITH NEEDS. PT CONTINUES TO HAVE FREQUENT URGENT URINATION, URINE IS CLEAR IN APPEARANCE. URINE CULTURE PENDING. SEE DOCUMENTED VS AND ASSESSMENT. PT STATES SHE FEELS BETTER TODAY. DR GARRIDO IN FOR CONSULT, SPUTUM SAMPLE COLLECTED PER HIS ORDERS AND SENT TO THE LAB. SEE HIS NOTE FOR DETAILS. PT OOB TO SHOWER THIS AFTERNOON, ASSISTED BY . PT SEEMS TO BE DOING MUCH BETTER TODAY OVERALL. CALL LIGHT IN REACH, WILL CONTINTUE TO MONITOR/TREAT AND GIVE REPORT TO NOC SHIFT RN.
[2023-05-23 19:44] LABS: Haemophilus influenzae DNA Detected Bin >=10^7 copy/mL (NOT DETECT)
[2023-05-23 19:45] LABS: Acinetobacter baumannii DNA Not Detected copy/mL (NOT DETECT); Adenovirus DNA Not Detected (NOT DETECT); Chlamydia pneumonia Not Detected (NOT DETECT); Enterobacter cloacae DNA Not Detected copy/mL (NOT DETECT); Escherichia coli DNA Not Detected copy/mL (NOT DETECT); Human Coronavirus RNA Not Detected (NOT DETECT); Human Metapneumovirus RNA Not Detected (NOT DETECT); Influenza virus A RNA Detected (NOT DETECT); Influenza virus B RNA Not Detected (NOT DETECT); Klebsiella aerogenes DNA Not Detected copy/mL (NOT DETECT); Klebsiella oxytoca DNA Not Detected copy/mL (NOT DETECT); Klebsiella pneumoniae DNA Not Detected copy/mL (NOT DETECT); Legionella pneumophila Not Detected (NOT DETECT); Moraxella catarrhalis DNA Not Detected copy/mL (NOT DETECT); Mycoplasma pneumoniae Not Detected (NOT DETECT); Parainfluenza virus RNA Not Detected (NOT DETECT); Proteus sp DNA Not Detected copy/mL (NOT DETECT); Pseudomonas aeruginosa DNA Not Detected copy/mL (NOT DETECT); Respiratory syncytial Vir RNA Not Detected (NOT DETECT); Rhinovirus+Enterovirus RNA Not Detected (NOT DETECT); Serratia marcescens DNA Not Detected copy/mL (NOT DETECT); Staphylococcus aureus DNA Not Detected copy/mL (NOT DETECT); Streptococcus agalactiae DNA Not Detected copy/mL (NOT DETECT); Streptococcus pneumoniae DNA Not Detected copy/mL (NOT DETECT); Streptococcus pyogenes DNA Not Detected copy/mL (NOT DETECT)
[2023-05-23 20:00] VITALS: BP 147/95
[2023-05-24 00:36] VITALS: BP 124/58
[2023-05-24 04:25] VITALS: BP 142/72
[2023-05-24 04:53] LABS: Hematocrit 30.8 % (33.0-51.0); Hemoglobin 9.5 g/dL (11.5-16.0); Mean Corpuscular HGB 25.2 pg (26.0-34.0); Mean Corpuscular HGB Conc 30.8 g/dL (31.5-36.5); Mean Corpuscular Volume 82 fL (80-100); Mean Platelet Volume 10.4 fL (9.1-12.4); Platelet Count 180 K/mm3 (150-400); RDW Coefficient Variation 15.7 % (11.7-14.2); RDW Standard Deviation 46.6 fL (35.1-46.3); Red Blood Cell Count 3.77 M/mm3 (3.80-5.20)
--- NOTE | 2023-05-24 05:20 | NUR ---
SHIFT SUMMARY PT REMAINS A&O X4, FORGETFULNESS AND MILD CONFUSION NOTED BUT NOT ACUTE CHANGE FROM PREVIOUS MENTATION. VSS; SBP 120 - 140, HR SR WITH PVC'S, AFEBRILE, SPO2 >94% WITH EITHER 2 LPM NC OR BIPAP. OF NOTE PT WAS IRRITABLE AND DECLINING TO WEAR BIPAP THROUGHOUT THE NIGHT. THIS RN PROVIDED EDUCATION, PT VERBALIZED UNDERSTANDING ALTHOUGH STILL DID NOT WEAR BIPAP MOST OF THE EVENING. PT RIPPED MASK OFF SEVERAL TIMES AND STATED "I HATE THIS THING AND DO NOT WANT TO WEAR IT". PT FINALLY AGREEABLE TO WEAR FOR ABOUT 3-4 HOURS AND THEN AGAIN RIPPED IT OFF AND UNWILLING TO CONTINUE USING BIPAP MASK. PT STATES SHE DOES FEEL LIKE HER BREATHING IS IMPROVING AND THAT SHE IS FEELING "A LITTLE BETTER". CONTINUES TO HAVE PRODUCTIVE COUGH. NO CONCERNS OR ISSUES GI/. PT SBA TO RESTROOM ALTHOUGH GAIT IS MILDLY UNSTEADY INTIALLY BUT THEN PT DOES BETTER. PT HAS A TENDENCY TO WANT TO GRAB FOR FURNITURE OR HANG ON TO SOMETHING WHILE TRYING TO AMBULATE. THIS RN PROVIDED EDUCATION AND SUGGESTED NEXT TIME TO TRY AND USE THE WALKER. WILL UPDATE ONCOMING RN. PT CURRENTLY RESTING, CALL LIGHT IN REACH.
[2023-05-24 05:21] LABS: Bun/Creatinine Ratio 37.7 (12.0-20.0); Calcium, Blood 8.4 mg/dL (8.5-10.1); Creatinine, Blood 1.67 mg/dL (0.40-1.00); Potassium, Blood 4.3 mmol/L (3.5-5.5)
[2023-05-24 08:55] VITALS: BP 136/68
[2023-05-24 13:15] VITALS: BP 146/76
[2023-05-24 16:29] VITALS: BP 134/72
[2023-05-24] MEDS ORDERED: AMOCLA875 PO (16:38)
[2023-05-24] MEDS ORDERED: ZAFI20 PO (17:59)
[2023-05-24] MEDS ORDERED: BASAGLAR K100 UNIT/1 SC (18:00)
--- NOTE | 2023-05-24 19:15 | NUR ---
ASSUMED CARE OF PT AT 0700 THIS AM. NO ACUTE CHANGES. PT IS DOING WELL. HOME O2 EVAL ORDERED BY DR VIZCARRA AND PT IS DISCHARGED HOME THIS EVENING WITH 2L O2 AND NEBULIZER FOR HOME USE. DISCHARGE INSTRUCTIONS REVIEWED WITH PT AND BY AC VELAZQUEZ. IV REMOVED AND PT DISCHARGED HOME VIA WHEELCHAIR IN THE CARE OF HER . ALL BELONGINGS SENT WITH PT.
== END 2023-05-24 19:00 | disposition home or self-care (01) | DRG 193 ==
LOC: ER 15:04 → MEDS 18:12 → PCU 18:12 → MEDS 21:05 → PCU 05-22 10:40
PROVIDERS: Internal Medicine; Internal Medicine Critical Care Medicine; Nurse Practitioner Acute Care; Physician Assistant; Student in an Organized Health Care Education/Training Program; ADMIT Internal Medicine
PROC: 5A09357 Assistance with Respiratory Ventilation, Less than 24 Consecutive Hours, Continuous Positive Airway Pressure (ICD-10-PCS; principal; 2023-05-20)
DX: J10.00 Influenza due to other identified influenza virus with unspecified type of pneumonia (principal); E43 Unspecified severe protein-calorie malnutrition; J96.01 Acute respiratory failure with hypoxia; J96.02 Acute respiratory failure with hypercapnia; J45.901 Unspecified asthma with (acute) exacerbation; R65.10 Systemic inflammatory response syndrome (SIRS) of non-infectious origin without acute organ dysfunction; E87.4 Mixed disorder of acid-base balance; Z51.5 Encounter for palliative care; N18.30 Chronic kidney disease, stage 3 unspecified; I12.9 Hypertensive chronic kidney disease with stage 1 through stage 4 chronic kidney disease, or unspecified chronic kidney disease; E78.5 Hyperlipidemia, unspecified; R79.89 Other specified abnormal findings of blood chemistry; N28.9 Disorder of kidney and ureter, unspecified; I27.20 Pulmonary hypertension, unspecified; D63.1 Anemia in chronic kidney disease; E11.22 Type 2 diabetes mellitus with diabetic chronic kidney disease; E55.9 Vitamin D deficiency, unspecified; Z11.52 Encounter for screening for COVID-19; Z79.899 Other long term (current) drug therapy; Z79.51 Long term (current) use of inhaled steroids; Z79.82 Long term (current) use of aspirin; Z86.19 Personal history of other infectious and parasitic diseases; Z98.51 Tubal ligation status; Z90.89 Acquired absence of other organs; Z68.22 Body mass index [BMI] 22.0-22.9, adult
CPT/HCPCS: 0241U; 36415; 71045; 71250; 76770; 80048; 80053; 81001; 82010; 82803; 82947; 83036; 83735; 83880; 83930; 84100; 84145; 85025; 85027; 87086; 87633; 92610; 93005; 93010; 93306; 94640; 94644; 94660; 94664; 94760; 94761; 94762; 96365; 96366; 99285-25; A9270; J0295; J0456; J1644; J1650; J1815; J2930; J7030; J7050; J7120; J7512

== ENCOUNTER 2024-06-14 01:43 | Inpatient (IN) | payer OTHER ==
[~2024-06-14] VITALS: Ht 167.6 cm; Wt 49.6 kg
[~2024-06-14 01:43] MED LIST changes: +AMOCLA875 PO; +BASAGLAR K100 UNIT/1 SC; +HYDROCHLOROTH12.5 MG PO; +LOSA50 PO; +Lovastatin20 MG PO; +MONT10T PO; +NOVOLIN N100 UNIT/2 SC; +NOVOLOG FL100 UNIT/3 SC; +SYMBICORT 80-10.2 GM INH
[2024-06-14 02:06] LABS: BASOPHILS ABSOLUTE AUTO 0.05 K/mm3 (0.00-0.23); BASOPHILS PERCENT AUTO 1 % (0-2); EOSINOPHILS ABSOLUTE AUTO 0.62 K/mm3 (0.00-0.68); EOSINOPHILS PERCENT AUTO 6 % (0-6); Hematocrit 37.8 % (33.0-51.0); Hemoglobin 11.7 g/dL (11.5-16.0); IMMATURE GRAN ABSOLUTE AUTO 0.03 K/mm3 (0.00-0.10); IMMATURE GRAN PERCENT AUTO 0 % (0-1); LYMPHOCYTES ABSOLUTE AUTO 1.46 K/mm3 (0.84-5.20); LYMPHOCYTES PERCENT AUTO 15 % (21-46); MONOCYTES ABSOLUTE AUTO 0.94 K/mm3 (0.16-1.47); MONOCYTES PERCENT AUTO 9 % (4-13); Mean Corpuscular HGB 27.6 pg (26.0-34.0); Mean Corpuscular Volume 89 fL (80-100); Mean Platelet Volume 9.7 fL (9.1-12.4); NEUTROPHILS ABSOLUTE AUTO 6.94 K/mm3 (1.96-9.15); NEUTROPHILS PERCENT AUTO 69 % (41-73); Platelet Count 212 K/mm3 (150-400); RDW Coefficient Variation 13.9 % (11.7-14.2); RDW Standard Deviation 44.8 fL (35.1-46.3); Red Blood Cell Count 4.24 M/mm3 (3.80-5.20); White Blood Cell Count 10.04 K/mm3 (4.00-11.30)
[2024-06-14 02:16] LABS: Albumin, Blood 2.7 g/dL (3.4-5.0); Albumin/Globulin Ratio 0.8 (0.8-1.8); Bilirubin, Total 0.7 mg/dL (0.1-1.0); Bun/Creatinine Ratio 26.9 (12.0-20.0); Calcium, Blood 9.4 mg/dL (8.5-10.1); Creatinine, Blood 1.75 mg/dL (0.40-1.00); Globulin, Blood 3.3 g/dL (2.2-4.0); Potassium, Blood 5.2 mmol/L (3.5-5.5)
[2024-06-14 02:50] LABS: Influenza A, PCR NEGATIVE (NEGATIVE); Influenza B, PCR NEGATIVE (NEGATIVE); Resp Syncytial Virus, PCR NEGATIVE (NEGATIVE); SARS-Cov-2 (COVID-19) PCR, MMC NEGATIVE (NEGATIVE)
[2024-06-14] MEDS ORDERED: Acetaminophen 325 MG TABLET PO PRN (05:25)
[2024-06-14] MEDS ORDERED: FLU VACC TS2024-25(6MOS UP)/PF 45 MCG/0.5 ML SYRINGE IM ONE (05:25)
[2024-06-14 06:04] VITALS: BP 194/69
[2024-06-14] MEDS ORDERED: Mometasone/Formoterol MDI 100/5 mcg 13 GM INH SCH (06:20)
--- NOTE | 2024-06-14 06:35 | NUR ---
ARRIVAL PT NEW ADMIT FROM ER. ARRIVED VIA GOURNEY ON 2L NC. PT WAS ABLE TO TRANSFER [place] [facility] INTO HOSPITAL BED W/ MIN ASSISTANCE. A/OX3, PLEASENT AND COOPERATIVE. UNABLE TO REPORT THE MONTH, YEAR, OR PRESIDENT. POOR HISTORIAN CONCERNING MEDICATION OR MEDICAL HISTORY. BLE W/ +2 PITTING EDEMA, PT REPORTS TENDERNESS AND SLIGHT RESSNESS TO HER LEGS. LUNG SOUNDS HAVE CRACKLES T/O, WHEEZING NOTED IN UPPER LOBES, VERY DIMINISHED IN LOWER LOBES. VSS, SATTING >90% ON 2L NS, PERSISTANT HTN NOTED. PT REPORTS NO SOB OR CP. ARRIVED AND REPORTS THAT THE PATIENT "TAKES NO PILLS, ONLY INSULIN", MED REC INCOMPLETE. PLAN TO CONTACT PHARMACY FOR MED REC. PLAN FOR DIURESIS AND MONITORING. THE PATIENT IS CURRENTLY RESTING, SPEAKING TO SPOUCE, CALL LIGHT IN REACH
[2024-06-14 06:54] VITALS: BP 182/78
[2024-06-14] MEDS ORDERED: Insulin Human Lispro 100 Units/ML 3ML Syringe SC SCH (07:30)
[2024-06-14 08:43] LABS: BASOPHILS ABSOLUTE AUTO 0.08 K/mm3 (0.00-0.23); BASOPHILS PERCENT AUTO 1 % (0-2); EOSINOPHILS ABSOLUTE AUTO 0.53 K/mm3 (0.00-0.68); EOSINOPHILS PERCENT AUTO 6 % (0-6); Hematocrit 39.7 % (33.0-51.0); Hemoglobin 11.8 g/dL (11.5-16.0); IMMATURE GRAN ABSOLUTE AUTO 0.03 K/mm3 (0.00-0.10); IMMATURE GRAN PERCENT AUTO 0 % (0-1); LYMPHOCYTES ABSOLUTE AUTO 1.04 K/mm3 (0.84-5.20); LYMPHOCYTES PERCENT AUTO 11 % (21-46); MONOCYTES ABSOLUTE AUTO 0.88 K/mm3 (0.16-1.47); MONOCYTES PERCENT AUTO 9 % (4-13); Mean Corpuscular HGB 26.9 pg (26.0-34.0); Mean Corpuscular HGB Conc 29.7 g/dL (31.5-36.5); Mean Corpuscular Volume 90 fL (80-100); Mean Platelet Volume 9.9 fL (9.1-12.4); NEUTROPHILS ABSOLUTE AUTO 6.99 K/mm3 (1.96-9.15); NEUTROPHILS PERCENT AUTO 73 % (41-73); Platelet Count 211 K/mm3 (150-400); RDW Coefficient Variation 13.8 % (11.7-14.2); Red Blood Cell Count 4.39 M/mm3 (3.80-5.20); White Blood Cell Count 9.55 K/mm3 (4.00-11.30)
[2024-06-14] MEDS ORDERED: AmLODIPine Besylate 5 MG Tab PO SCH (09:00)
[2024-06-14] MEDS ORDERED: Furosemide 10 MG / ML 2ML Vial IV SCH (09:00)
[2024-06-14] MEDS ORDERED: Montelukast Sodium 10 MG Tab PO SCH ×2 (09:00→21:00)
[2024-06-14] MEDS ORDERED: Losartan Potassium 50 MG Tab PO SCH (09:00)
[2024-06-14] MEDS ORDERED: HydroCHLOROthiazide 25 mg Tab PO SCH (09:00)
[2024-06-14] MEDS ORDERED: Metoprolol Succinate 25 MG TABCR PO SCH (09:00)
[2024-06-14] MEDS ORDERED: Aspirin 81 MG Chew PO SCH (09:00)
[2024-06-14 09:23] LABS: Bun/Creatinine Ratio 26.9 (12.0-20.0); Calcium, Blood 9.3 mg/dL (8.5-10.1); Creatinine, Blood 1.75 mg/dL (0.40-1.00); Potassium, Blood 4.8 mmol/L (3.5-5.5)
[2024-06-14 11:41] VITALS: BP 140/72
[2024-06-14 14:46] VITALS: BP 145/68
--- NOTE | 2024-06-14 17:48 | NUR ---
SHIFT SUMMARY HAS BEEN UP TO BSC SEVERAL X's & IS DIURESING WELL. ATTEMPTED TO WEAN 02 FROM 2L TO 1L BUT DROPPED DOWN TO 86%. NONPRODUCTIVE COUGH. LUNGS COURSE. PLEASANTLY CONFUSED. EATING WELL.
[2024-06-14 19:29] VITALS: BP 168/81
[2024-06-14] MEDS ORDERED: Insulin Glargine-Yfgn 100 Unit/mL 3 ML SYR SC SCH (21:00)
[2024-06-14] MEDS ORDERED: Atorvastatin 10 MG Tab PO SCH (21:00)
[2024-06-15 03:19] VITALS: BP 147/62
[2024-06-15 05:58] LABS: BASOPHILS ABSOLUTE AUTO 0.07 K/mm3 (0.00-0.23); BASOPHILS PERCENT AUTO 1 % (0-2); EOSINOPHILS ABSOLUTE AUTO 0.74 K/mm3 (0.00-0.68); EOSINOPHILS PERCENT AUTO 8 % (0-6); Hematocrit 37.9 % (33.0-51.0); Hemoglobin 11.3 g/dL (11.5-16.0); IMMATURE GRAN ABSOLUTE AUTO 0.02 K/mm3 (0.00-0.10); IMMATURE GRAN PERCENT AUTO 0 % (0-1); LYMPHOCYTES PERCENT AUTO 14 % (21-46); MONOCYTES ABSOLUTE AUTO 1.06 K/mm3 (0.16-1.47); MONOCYTES PERCENT AUTO 11 % (4-13); Mean Corpuscular HGB 27.1 pg (26.0-34.0); Mean Corpuscular HGB Conc 29.8 g/dL (31.5-36.5); Mean Corpuscular Volume 91 fL (80-100); Mean Platelet Volume 9.8 fL (9.1-12.4); NEUTROPHILS ABSOLUTE AUTO 6.28 K/mm3 (1.96-9.15); NEUTROPHILS PERCENT AUTO 66 % (41-73); Platelet Count 183 K/mm3 (150-400); RDW Coefficient Variation 13.6 % (11.7-14.2); RDW Standard Deviation 45.7 fL (35.1-46.3); Red Blood Cell Count 4.17 M/mm3 (3.80-5.20); White Blood Cell Count 9.47 K/mm3 (4.00-11.30)
[2024-06-15 06:24] LABS: Calcium, Blood 8.9 mg/dL (8.5-10.1); Creatinine, Blood 1.89 mg/dL (0.40-1.00); Magnesium, Blood 2.1 mg/dL (1.6-2.4); Potassium, Blood 5.2 mmol/L (3.5-5.5)
--- NOTE | 2024-06-15 06:36 | NUR ---
SHIFT SUMMARY NOC. PT ADMIT FOR ACUTE RESPIRATORY FAILURE R/T FLUID OVERLOAD. PT ON STRICT I&OS AND A FLUID RESTRICTION. PT VOIDING URINE MULTIPLE TIMES T/O SHIFT. PT IS IMPULSIVE AND WEAK GETTING OUT OF BED, BED ALARM SET FOR SAFETY. PT ON 2 L VIA N/C AND CONTINUOUS BIOX IN PLACE. PT A/O X2-3 AND DOES NOT UTILIZE CALL LIGHT FOR COMMUNICATION.
[2024-06-15 07:12] VITALS: BP 167/69
[2024-06-15] MEDS ORDERED: Enoxaparin 30 MG/0.3 ML SYR SC SCH (09:00)
[2024-06-15 14:30] VITALS: BP 135/75
--- NOTE | 2024-06-15 17:14 | NUR ---
SHIFT SUMMARY PT AOX4, COOPERATIVE, ABLE TO MAKE NEEDS KNOWN. PT ON FLUID RESTRICTION 1200 DAY, 600 NOC. BED ALARM IS ACTIVE. PT IS 1 PERSON ASSIST TO COMMODE/CHAIR. ON 2L O2 SATTING ABOUT 94%. PT IS BEING DIURESED. PT TO BE DISCHARGED POSSIBLY 06/16/24 AND HAVE [facility] PROCEDURE NEXT WEEK [facility]. BED IN LOWEST POSITION, CALL LIGHT WITHIN REACH.
[2024-06-15 19:49] VITALS: BP 136/74
[2024-06-16 02:08] VITALS: BP 163/66
[2024-06-16 04:58] LABS: BASOPHILS ABSOLUTE AUTO 0.06 K/mm3 (0.00-0.23); BASOPHILS PERCENT AUTO 1 % (0-2); EOSINOPHILS ABSOLUTE AUTO 0.63 K/mm3 (0.00-0.68); EOSINOPHILS PERCENT AUTO 7 % (0-6); Hematocrit 38.5 % (33.0-51.0); Hemoglobin 11.4 g/dL (11.5-16.0); IMMATURE GRAN ABSOLUTE AUTO 0.02 K/mm3 (0.00-0.10); IMMATURE GRAN PERCENT AUTO 0 % (0-1); LYMPHOCYTES ABSOLUTE AUTO 1.27 K/mm3 (0.84-5.20); LYMPHOCYTES PERCENT AUTO 14 % (21-46); MONOCYTES ABSOLUTE AUTO 1.03 K/mm3 (0.16-1.47); MONOCYTES PERCENT AUTO 11 % (4-13); Mean Corpuscular HGB 26.6 pg (26.0-34.0); Mean Corpuscular HGB Conc 29.6 g/dL (31.5-36.5); Mean Corpuscular Volume 90 fL (80-100); Mean Platelet Volume 9.7 fL (9.1-12.4); NEUTROPHILS ABSOLUTE AUTO 6.32 K/mm3 (1.96-9.15); NEUTROPHILS PERCENT AUTO 68 % (41-73); Platelet Count 192 K/mm3 (150-400); RDW Coefficient Variation 13.4 % (11.7-14.2); RDW Standard Deviation 43.9 fL (35.1-46.3); Red Blood Cell Count 4.28 M/mm3 (3.80-5.20); White Blood Cell Count 9.33 K/mm3 (4.00-11.30)
[2024-06-16 05:24] LABS: Bun/Creatinine Ratio 28.9 (12.0-20.0); Calcium, Blood 8.6 mg/dL (8.5-10.1); Creatinine, Blood 2.01 mg/dL (0.40-1.00); Magnesium, Blood 1.8 mg/dL (1.6-2.4); Potassium, Blood 4.8 mmol/L (3.5-5.5)
--- NOTE | 2024-06-16 05:24 | NUR ---
SHIFT SUMMARY NO ACUTE CHANGES TO REPORT OVERNIGHT. PT HAS RESTED MOST OF THE NIGHT. PT FORGETFUL AT TIMES AND IMPULSIVE. SETS OFF BED ALARM AND DOES NOT USE CALL LIGHT. O2 IN PLACE, SATS WNL ON O2. PLAN OF CARE REMAINS UNCHANGED. VITALS STABLE. BED IN LOWEST POSITION, BED ALARM ON, CALL LIGHT WITHIN REACH.
[2024-06-16 07:31] VITALS: BP 186/82
[2024-06-16 14:19] VITALS: BP 124/47
[2024-06-16 14:57] LABS: Bun/Creatinine Ratio 25.5 (12.0-20.0); Calcium, Blood 8.8 mg/dL (8.5-10.1); Creatinine, Blood 2.16 mg/dL (0.40-1.00); Potassium, Blood 5.2 mmol/L (3.5-5.5)
--- NOTE | 2024-06-16 16:37 | NUR ---
SUMMARY PT ON 2L O2 VIA NC, DENIES ANY SOB TODAY, REPORTS FEELING "BETTER" TODAY, NPC NOTED, UP OOB W/STANBY ASSIST TO CHAIR AND BATHROOM, LACY WELL, PT ON CONT. OXIMETRY MONITOR, CONT. W/ FLUID RESTRICTION, DENIES ANY PAIN, NO ACUTE CHANGES THIS SHIFT.
--- NOTE | 2024-06-16 18:06 | NUR ---
CARE ASSUMED AT APPROXIMATELY 1630. NO CHANGES TO REPORT SINCE CARE WAS ASSUMED.
[2024-06-16 19:16] VITALS: BP 134/67
--- NOTE | 2024-06-17 03:56 | NUR ---
SHIFT SUMMARY PT HERE FOR ACUTE RESPIRATORY FAILURE W/ HYPOXIA. PT HAS BEEN ON 2 L NASAL CANNULA THROUGHOUT THIS SHIFT. OXYGEN SATURATION HAS BEEN STABLE IN THE 90'S BUT SOMETIMES DROPS TO 88% W/ EXERTION. PT FORGETS LIMITATIONS AND NEEDS REMINDED TO USE CALL LIGHT. PT SETS BED ALARM OFF AND DOES NOT USE CALL LIGHT. BED REMAINS IN LOW POSITION, CALL LIGHT IN REACH AND BED ALARM ON. PT VOIDING ON BEDSIDE COMMODE THROUGHOUT SHIFT W/STAND BY ASSIST. MEPILEX APPLIED TO COCCYX AND TO RIGHT LOWER LEG DUE TO REDNESS. HEELS FLOATED WITH TWO PILLOWS AND PT ENCOURAGED TO REPOSITION IN BED EVERY TWO HOURS TO PREVENT PRESSURE SORES.
[2024-06-17 05:09] VITALS: BP 148/67
[2024-06-17 05:26] LABS: BASOPHILS ABSOLUTE AUTO 0.07 K/mm3 (0.00-0.23); BASOPHILS PERCENT AUTO 1 % (0-2); EOSINOPHILS PERCENT AUTO 7 % (0-6); Hematocrit 38.7 % (33.0-51.0); Hemoglobin 11.5 g/dL (11.5-16.0); IMMATURE GRAN ABSOLUTE AUTO 0.03 K/mm3 (0.00-0.10); IMMATURE GRAN PERCENT AUTO 0 % (0-1); LYMPHOCYTES ABSOLUTE AUTO 1.89 K/mm3 (0.84-5.20); LYMPHOCYTES PERCENT AUTO 19 % (21-46); MONOCYTES ABSOLUTE AUTO 1.12 K/mm3 (0.16-1.47); MONOCYTES PERCENT AUTO 11 % (4-13); Mean Corpuscular HGB 26.6 pg (26.0-34.0); Mean Corpuscular HGB Conc 29.7 g/dL (31.5-36.5); Mean Corpuscular Volume 89 fL (80-100); Mean Platelet Volume 9.6 fL (9.1-12.4); NEUTROPHILS ABSOLUTE AUTO 6.34 K/mm3 (1.96-9.15); NEUTROPHILS PERCENT AUTO 63 % (41-73); Platelet Count 212 K/mm3 (150-400); RDW Coefficient Variation 13.4 % (11.7-14.2); RDW Standard Deviation 43.8 fL (35.1-46.3); Red Blood Cell Count 4.33 M/mm3 (3.80-5.20); White Blood Cell Count 10.15 K/mm3 (4.00-11.30)
[2024-06-17 06:04] LABS: Magnesium, Blood 1.8 mg/dL (1.6-2.4)
[2024-06-17 06:09] LABS: Bun/Creatinine Ratio 30.6 (12.0-20.0); Calcium, Blood 8.8 mg/dL (8.5-10.1); Creatinine, Blood 1.93 mg/dL (0.40-1.00); Potassium, Blood 4.3 mmol/L (3.5-5.5)
[2024-06-17] MEDS ORDERED: Dextrose 50% 50 ML Vial IV ONE (06:35)
[2024-06-17] MEDS ORDERED: Dextrose 50% 50 ML Syringe IV ONE (06:40)
--- NOTE | 2024-06-17 06:49 | NUR ---
CRITICAL LAB JORGE LUIS CHARGE NURSE NOTIFIED THIS NURSE OF CRITICAL LAB GLUCOSE OF 49. AT 1630 APPLE JUICE, SUGAR PACKET, AND CHEESE GIVEN TO PT. JORGE LUIS RN CALLED HOSPITALIST AND NOTIFIED OF LAB VALUE AND RECEIVED AN ORDER FOR D50 IV PUSH ONE TIME (SEE EMAR). PT DENIES SYMPTOMS OF HYPOGLYCEMIA.
[2024-06-17 07:09] VITALS: BP 161/61
[2024-06-17 14:23] VITALS: BP 143/56
[2024-06-17] MEDS ORDERED: ASPI81CH PO (16:08)
[2024-06-17] MEDS ORDERED: AMLO5 PO (16:08)
[2024-06-17] MEDS ORDERED: ATOR10 PO (16:13)
[2024-06-17] MEDS ORDERED: HYDCHL12.5 PO (16:14)
[2024-06-17] MEDS ORDERED: LOSA50 PO (16:15)
[2024-06-17] MEDS ORDERED: INSULANPEN SC (16:15)
[2024-06-17] MEDS ORDERED: METO25ER PO (16:16)
[2024-06-17] MEDS ORDERED: DULERA 100 MCG-13 GM INH (16:17)
[2024-06-17] MEDS ORDERED: MONT10T PO (16:17)
--- NOTE | 2024-06-17 17:21 | NUR ---
MARCUS ZAVALA COMPLETED DISCHARGE INSTRUCTIONS
[2024-06-17] MEDS ORDERED: Insulin Glargine-Yfgn 100 Unit/mL 3 ML SYR SC SCH (21:00)
== END 2024-06-17 17:00 | disposition home health service (06) | DRG 189 ==
LOC: ER 01:43 → SURS 05:24 → MEDS 05:24 → SURS 05:40
PROVIDERS: Student in an Organized Health Care Education/Training Program; ADMIT Student in an Organized Health Care Education/Training Program
DX: J96.01 Acute respiratory failure with hypoxia (principal); J81.0 Acute pulmonary edema; J84.9 Interstitial pulmonary disease, unspecified; N17.9 Acute kidney failure, unspecified; I35.0 Nonrheumatic aortic (valve) stenosis; E11.22 Type 2 diabetes mellitus with diabetic chronic kidney disease; I12.9 Hypertensive chronic kidney disease with stage 1 through stage 4 chronic kidney disease, or unspecified chronic kidney disease; N18.30 Chronic kidney disease, stage 3 unspecified; E78.5 Hyperlipidemia, unspecified; I27.20 Pulmonary hypertension, unspecified; I34.81 Nonrheumatic mitral (valve) annulus calcification; I34.2 Nonrheumatic mitral (valve) stenosis; D69.6 Thrombocytopenia, unspecified; R54 Age-related physical debility; Z91.148 Patient's other noncompliance with medication regimen for other reason; Z79.899 Other long term (current) drug therapy; Z79.82 Long term (current) use of aspirin; Z90.89 Acquired absence of other organs; Z98.51 Tubal ligation status; Z87.19 Personal history of other diseases of the digestive system; Z79.4 Long term (current) use of insulin; Z79.85 Long-term (current) use of injectable non-insulin antidiabetic drugs; Z28.29 Immunization not carried out because of patient decision for other reason
CPT/HCPCS: 0241U; 36415; 71045; 80048; 80053; 82947; 83036; 83735; 83880; 84484; 85025; 93005; 93010; 93306; 94640; 94761; 94762; 99285-25; A9270; J1650; J1815; J1940

== ENCOUNTER → 2024-07-14 | Outpatient (CLI) | payer OTHER ==
[~2024-07-14] MED LIST changes: +ATOR10 PO; +DULERA 100 MCG-13 GM INH; +HYDCHL12.5 PO; +INSULANPEN SC
[2024-07-14 14:21] LABS: Calcium, Blood 9.4 mg/dL (8.5-10.1); Creatinine, Blood 1.46 mg/dL (0.40-1.00); Potassium, Blood 4.4 mmol/L (3.5-5.5)
== END ==
LOC: LAB 10:55 → LAB SHORT 10:55
PROVIDERS: Physician Assistant
DX: I35.0 Nonrheumatic aortic (valve) stenosis (principal); I12.9 Hypertensive chronic kidney disease with stage 1 through stage 4 chronic kidney disease, or unspecified chronic kidney disease; N18.30 Chronic kidney disease, stage 3 unspecified
CPT/HCPCS: 80048

== ENCOUNTER 2024-08-19 19:20 | Observation (INO) | payer OTHER ==
[~2024-08-19] VITALS: Ht 152.4 cm; Wt 54.0 kg
[2024-08-19] MEDS ORDERED: Ipratropium/Albuterol SulF 2.5-0.5MG/3 ML Amp INH ONE (19:55)
[2024-08-19 20:01] LABS: BASOPHILS ABSOLUTE AUTO 0.02 K/mm3 (0.00-0.23); BASOPHILS PERCENT AUTO 0 % (0-2); EOSINOPHILS ABSOLUTE AUTO 0.11 K/mm3 (0.00-0.68); EOSINOPHILS PERCENT AUTO 1 % (0-6); Hematocrit 33.7 % (33.0-51.0); Hemoglobin 10.3 g/dL (11.5-16.0); IMMATURE GRAN ABSOLUTE AUTO 0.05 K/mm3 (0.00-0.10); IMMATURE GRAN PERCENT AUTO 1 % (0-1); LYMPHOCYTES ABSOLUTE AUTO 0.41 K/mm3 (0.84-5.20); LYMPHOCYTES PERCENT AUTO 4 % (21-46); MONOCYTES ABSOLUTE AUTO 0.59 K/mm3 (0.16-1.47); MONOCYTES PERCENT AUTO 6 % (4-13); Mean Corpuscular HGB 27.8 pg (26.0-34.0); Mean Corpuscular HGB Conc 30.6 g/dL (31.5-36.5); Mean Corpuscular Volume 91 fL (80-100); Mean Platelet Volume 10.4 fL (9.1-12.4); NEUTROPHILS ABSOLUTE AUTO 9.06 K/mm3 (1.96-9.15); NEUTROPHILS PERCENT AUTO 88 % (41-73); Platelet Count 187 K/mm3 (150-400); RDW Coefficient Variation 16.3 % (11.7-14.2); RDW Standard Deviation 53.9 fL (35.1-46.3); Red Blood Cell Count 3.71 M/mm3 (3.80-5.20); White Blood Cell Count 10.24 K/mm3 (4.00-11.30)
[2024-08-19 20:23] LABS: Albumin, Blood 3.8 g/dL (3.4-5.0); Bilirubin, Total 0.6 mg/dL (0.1-1.0); Bun/Creatinine Ratio 34.1 (12.0-20.0); Creatinine, Blood 3.43 mg/dL (0.40-1.00); Globulin, Blood 3.9 g/dL (2.2-4.0); Magnesium, Blood 2.9 mg/dL (1.6-2.4); Potassium, Blood 5.5 mmol/L (3.5-5.5); Total Protein, Blood 7.7 g/dL (6.4-8.2)
[2024-08-19] MEDS ORDERED: Acetaminophen 325 MG TABLET PO PRN (23:00)
[2024-08-19] MEDS ORDERED: NS 1,000 ML IV SCH (23:00)
[2024-08-19] MEDS ORDERED: Ondansetron HCl 2 MG / ML 2ML Vial IV PRN (23:00)
[2024-08-19] MEDS ORDERED: Ipratropium/Albuterol SulF 2.5-0.5MG/3 ML Amp INH SCH (23:00)
[2024-08-19 23:54] LABS: Influenza A, PCR NEGATIVE (NEGATIVE); Influenza B, PCR NEGATIVE (NEGATIVE); Resp Syncytial Virus, PCR NEGATIVE (NEGATIVE); SARS-Cov-2 (COVID-19) PCR, MMC NEGATIVE (NEGATIVE)
[2024-08-20] MEDS ORDERED: Albuterol 2.5 MG/3 ML VIAL INH PRN (00:30)
[2024-08-20 00:58] VITALS: BP 175/69
[2024-08-20 02:10] LABS: Base Excess Venous 13.5 mmol/L; Bicarbonate Venous 35.4 mmol/L (24.0-30.0); PCO2 Venous 53.2 mmHg (38-42); pH Blood Venous 7.46 (7.34-7.37)
[2024-08-20 02:17] LABS: BASOPHILS ABSOLUTE AUTO 0.02 K/mm3 (0.00-0.23); BASOPHILS PERCENT AUTO 0 % (0-2); EOSINOPHILS ABSOLUTE AUTO 0.14 K/mm3 (0.00-0.68); EOSINOPHILS PERCENT AUTO 1 % (0-6); Hematocrit 29.5 % (33.0-51.0); Hemoglobin 9.2 g/dL (11.5-16.0); IMMATURE GRAN ABSOLUTE AUTO 0.07 K/mm3 (0.00-0.10); IMMATURE GRAN PERCENT AUTO 1 % (0-1); LYMPHOCYTES ABSOLUTE AUTO 0.58 K/mm3 (0.84-5.20); LYMPHOCYTES PERCENT AUTO 5 % (21-46); MONOCYTES ABSOLUTE AUTO 1.07 K/mm3 (0.16-1.47); MONOCYTES PERCENT AUTO 10 % (4-13); Mean Corpuscular HGB 28.6 pg (26.0-34.0); Mean Corpuscular HGB Conc 31.2 g/dL (31.5-36.5); Mean Corpuscular Volume 92 fL (80-100); Mean Platelet Volume 10.4 fL (9.1-12.4); NEUTROPHILS PERCENT AUTO 83 % (41-73); Platelet Count 158 K/mm3 (150-400); RDW Coefficient Variation 16.1 % (11.7-14.2); RDW Standard Deviation 54.6 fL (35.1-46.3); Red Blood Cell Count 3.22 M/mm3 (3.80-5.20); White Blood Cell Count 10.98 K/mm3 (4.00-11.30)
[2024-08-20 02:39] LABS: Albumin, Blood 3.2 g/dL (3.4-5.0); Anion Gap 9 mmol/L (3-11); Blood Urea Nitrogen 122 mg/dL (8-24); Bun/Creatinine Ratio 36.2 (12.0-20.0); CO2, Blood 33 mmol/L (21-32); Calcium, Blood 8.6 mg/dL (8.5-10.1); Chloride, Blood 94 mmol/L (98-108); Creatinine, Blood 3.37 mg/dL (0.40-1.00); Glomerular Filtration Rate 13 (60-); Glucose, Blood 164 mg/dL (70-99); Phosphorus, Blood 6.5 mg/dL (2.5-4.9); Potassium, Blood 4.9 mmol/L (3.5-5.5); Sodium, Blood 131 mmol/L (136-145)
--- NOTE | 2024-08-20 03:35 | NUR ---
SHIFT SUMMARY NEURO: ORIENTED X1. PT ANSWERS "I'M NOT QUITE SURE" TO MOST ADMISSION QUESTIONS. MOVES ALL EXTREMETIES WITH EQUAL STRENGTH. PERRLA. PT APPEARS TO HAVE HAD RECENT FALLS. CARDIAC: +2 BLE EDEMA WITH WEEPING AND BLISTERS. LUNGS: CRACKLES IN BASES. TIGHT UPPER LOBES. 4-6L NC. GI/: DISTENDED ABD. PUREWICK IN PLACE
[2024-08-20 04:41] VITALS: BP 147/49
[2024-08-20] MEDS ORDERED: NS 250 ML IV PRN (04:55)
[2024-08-20] MEDS ORDERED: CefTRIAXone Sodium 1,000 MG in NS 100 ML IV SCH (05:00)
[2024-08-20] MEDS ORDERED: Azithromycin 500 MG in NS 250 ML IV SCH (05:01)
[2024-08-20] MEDS ORDERED: Insulin Human Lispro 100 Units/ML 3ML Syringe SC SCH ×2 (07:30→08:30)
[2024-08-20 07:45] VITALS: BP 139/58
[2024-08-20] MEDS ORDERED: Aspirin 81 MG Chew PO SCH (09:00)
[2024-08-20] MEDS ORDERED: Metoprolol Succinate 25 MG TABCR PO SCH (09:00)
[2024-08-20] MEDS ORDERED: AmLODIPine Besylate 5 MG Tab PO SCH (09:00)
[2024-08-20] MEDS ORDERED: Enoxaparin 30 MG/0.3 ML SYR SC SCH (09:00)
[2024-08-20 11:31] VITALS: BP 145/60
[2024-08-20] MEDS ORDERED: ZINC OXIDE/PETROLATUM, YELLOW 1 APPLIC/71 GM PASTE TOP PRN (12:45)
[2024-08-20] MEDS ORDERED: Scopolamine Hydrobromide Patch TOP PRN (14:30)
[2024-08-20] MEDS ORDERED: Morphine Sulfate 20 MG/1ML 1 ML Oral Syringe SL PRN (14:30)
[2024-08-20] MEDS ORDERED: Atropine Sulfate 1% Opth Soln 2ML BTL SL PRN (14:30)
--- NOTE | 2024-08-20 14:47 | NUR ---
PALLIATIVE CARE VISIT: MET WITH FAMILY, SPOUSE EDMUND, SON EDMUND PINO., ELICEO, AND A FAMILY FRIEND WITH PT IN HER ROOM. PT IS ON 3 LPM VIA NC, AWAKE AND ABLE TO COMMUNICATE NEEDS. SHE IS ABLE TO PARTICIPATE IN MEANINGFUL DISCUSSION. GOALS OF CARE DISCUSSED. SPOUSE STATES HE CANNOT TAKE HIS HOME TO CARE FOR HER. SON STATES HIS DAD IS EXHAUSTED AND HIS HEALTH IS STARTING TO BE AFFECTED. THERE WILL NOT BE ANYONE TO ASSIST WITH HIS MOMS CARE THEY LIVE OUT OF TOWN. THERE IS ALSO NO ROOM IN THE HOME FOR A HOSPITAL BED TO BE PLACED FOR HIS WHICH SHE WILL NEED. FAMILY REQUEST OTHER OPTIONS. FAMILY QUESTIONED IF THEY ARE AGREEABLE TO HOSPICE SERVICES. FAMILY EDUCATED ON WHAT HOSPICE SERVICES PROVIDE. SPOUSE HAS CONDITION THAT VIJAY WILL BE ABLE TO TAKE HER MEDICATIONS AND SHE WILL HAVE "GENTLE CARE" AND NOT BE OVER MEDICATED WITH MORPHINE. DISCUSSED THAT MORPHINE AND LORAZEPAM ARE USED ONLY WHEN NEEDED TO KEEP PT COMFORTABLE AND USED FOR PAIN, SOB, ANXIETY AND GOAL IS TO START LOW AND ADJUST NEEDED. FAMILY ARE IN AGREEMENT WITH THIS POC. ADVISED THAT VIJAY WOULD NEED TO HAVE SWAME DAY ADMISSION TO HOSPICE AND WILL BE COORDINATED THROUGH CARE MANAGEMENT. UNABLE TO DETERMINE AT THIS TIME IF A BED WOULD BE AVAILABLE AT A FACILITY. FAMILY STATE PT HAS TWIN SISTER WHO IS AT [facility] IN REHAB DUE TO A FX PELVIS AND WOULD LIKE HER TO GO THERE ALSO. HOSPICE AGENCY CHOICES PROVIDED. FAMILY AGREE TO [facility] THEIR FRIEND RECOMMENDED [facility]. FAMILY/PT AGREE TO COMFORT MEASURES AT THIS TIME BUT WANT TO CONTINUE LIFE SAVING MEDICATIONS ALSO. UPDATED PRIMARY RN AND DR. BASHIR WITH ABOVE CONVERSATION. LEFT MESSAGE WITH CARE MANAGEMENT.
[2024-08-20 15:10] VITALS: BP 136/80
--- NOTE | 2024-08-20 17:06 | NUR ---
POLICY ANALYST SHIFT SUMMARY PATIENT IS ALERT AND ORIENTED TO SELF, PLACE, AND SITUATION, IS ABLE TO FOLLOW COMMANDS AND MAKE NEEDS KNOWN. VSS, PATIENT DENIES PRESENCE OF CHEST PAIN OR PRESSURE. SPO2 >90%, PT REQUIRING BETWEEN 3-4L VIA NC, PT DESATS WHILE EATING AND REQUIRES ADDITIONAL 02. PRESENCE OF WEAK, WET COUGH NOTED. SPEECH THERAPY EVAL DONE TODAY, SEE EVAL NOTE FOR RECOMMENDATIONS. PATIENT DENIES PRESENCE OF N/V/D, REPORTS MINIMAL APPETITE. PUREWICK CATHETER IN PLACE AND DRAINING TO SUCTION. PITTING EDEMA NOTED IN BILATERAL LOWER EXTREMITIES, BLISTERS NOTED, WEEPING MINIMAL CLEAR EXUDATE. WOUND ON RIGHT LOWER EXTREMITY DRESSED WITH XEROFORM, NONADHERENT DRESSING, AND KERLEX, DRESSING IS CLEAN DRY AND INTACT. STAGE 2 PRESSURE INJURY ON COCCYX NOTED, ZINC OXIDE CREAM APPLIED TO AREA, MEPILEX DRESSING IN PLACE. PALLIATIVE CARE CONSULTED WITH PATIENT AND FAMILY THIS SHIFT, SEE NOTE FOR PLAN. PATIENT UNABLE TO INDEPENDENTLY REPOSITION OR TRANSFER, REQUIRES TOTAL CARE. BED IN LOWEST POSITION, CALL LIGHT WITHIN REACH.
[2024-08-20] MEDS ORDERED: Insulin Glargine-Yfgn 100 Unit/mL 3 ML SYR SC SCH (21:00)
[2024-08-20] MEDS ORDERED: Atorvastatin 10 MG Tab PO SCH (21:00)
[2024-08-20] MEDS ORDERED: Lactobacil 2-S.Thermo-Bifido 1 1 Cap PO SCH (21:00)
[2024-08-20] MEDS ORDERED: Montelukast Sodium 10 MG Tab PO SCH (21:00)
--- NOTE | 2024-08-20 22:35 | NUR ---
REPORT CALL TO MEDICAL FLOOR RN. DAUGHTER COMPA UPDATED ON ROOM CHANGE AND STATES THEY WILL TEXT PT'S SPOUSE.
--- NOTE | 2024-08-20 22:54 | NUR ---
PT TRANSFERRED FROM PCU. A&OX2, COMFORTABLE, CALL LIGHT IN REACH, PCU TECH STATED SHE JUST TURNED HER. VS WNL, O2 ON /NC @ 5L. NO FAMILY AT BEDSIDE. WILL KEEP COMFORTABLE.
[2024-08-21 06:17] LABS: BASOPHILS ABSOLUTE AUTO 0.03 K/mm3 (0.00-0.23); BASOPHILS PERCENT AUTO 0 % (0-2); EOSINOPHILS ABSOLUTE AUTO 0.34 K/mm3 (0.00-0.68); EOSINOPHILS PERCENT AUTO 4 % (0-6); Hematocrit 27.9 % (33.0-51.0); Hemoglobin 8.3 g/dL (11.5-16.0); IMMATURE GRAN ABSOLUTE AUTO 0.04 K/mm3 (0.00-0.10); IMMATURE GRAN PERCENT AUTO 1 % (0-1); LYMPHOCYTES ABSOLUTE AUTO 0.66 K/mm3 (0.84-5.20); LYMPHOCYTES PERCENT AUTO 8 % (21-46); MONOCYTES ABSOLUTE AUTO 0.91 K/mm3 (0.16-1.47); MONOCYTES PERCENT AUTO 11 % (4-13); Mean Corpuscular HGB 27.9 pg (26.0-34.0); Mean Corpuscular HGB Conc 29.7 g/dL (31.5-36.5); Mean Corpuscular Volume 94 fL (80-100); Mean Platelet Volume 10.6 fL (9.1-12.4); NEUTROPHILS PERCENT AUTO 75 % (41-73); Platelet Count 130 K/mm3 (150-400); RDW Coefficient Variation 16.3 % (11.7-14.2); RDW Standard Deviation 56.3 fL (35.1-46.3); Red Blood Cell Count 2.98 M/mm3 (3.80-5.20); White Blood Cell Count 8.08 K/mm3 (4.00-11.30)
[2024-08-21 06:49] LABS: Bun/Creatinine Ratio 40.4 (12.0-20.0); Calcium, Blood 8.6 mg/dL (8.5-10.1); Creatinine, Blood 2.97 mg/dL (0.40-1.00)
[2024-08-21] MEDS ORDERED: Morphine Sulfate 20 MG/1ML 1 ML Oral Syringe SL PRN (16:40)
--- NOTE | 2024-08-21 17:05 | NUR ---
PT REMAINED UI PROGRAMMER ALL DAY. MEDICATIONS DISCHARGED AND KYLE PLACED FOR RETENTION AND COMFORT
[2024-08-22 00:51] VITALS: BP 123/47
--- NOTE | 2024-08-22 05:48 | NUR ---
SHIFT SUMMARY AT START OF SHIFT, PT S DAUGHTER AND SON AT BEDSIDE. PROVIDED COMFORT MEASURES, REPOSITIONING AND MEDICATING PER EMAR. SON STAYED AT BEDSIDE THROUGH NIGHT. APPROX 0500, PT BEGAN TO RATTLE. ATROPINE GIVEN PER EMAR. BREATHING AND HEART RATE HAVE SLOWED SIGNIFICANTLY. 0533, UPON COMFORT MEDICATION REASSESSMENT, IT WAS NOTED PT NO LONGER BREATHING. NO APICAL OR COROTIC PULSE. VERIFIED BY ELISABETH VELAZQUEZ, PT PEACEFULLY AT 0533. INFORMED PT FAMILY TO TAKE ALL THE TIME THEY NEED TO PROCESS. STAR CART BROUGHT TO ROOM FOR FAMILY.
--- NOTE | 2024-08-22 07:37 | NUR ---
PT'S [place] RING REMOVED AND SENT WITH SPOUSE, LAURA.
--- NOTE | 2024-08-22 07:54 | NUR ---
UPDATE FAMILY HAD NO PREFERENCE FOR HOME. NON-EMERGENT DISPATCH CALLED FOR [facility]. [facility] CALLED AND FAMILY NOTIFIED.
--- NOTE | 2024-08-22 10:59 | NUR ---
DISCHARGE NOTE PT [facility]. CHARGE NURSE NOTIFIED. FAMILY NOTIFIED. PERSONAL BELONGINGS TAKEN BY THE PT.
== END 2024-08-22 05:33 ==
LOC: ER 19:20 → PCU 19:21 → MEDS 08-20 22:49
PROVIDERS: Family Medicine; Student in an Organized Health Care Education/Training Program; ADMIT Student in an Organized Health Care Education/Training Program
DX: N17.9 Acute kidney failure, unspecified (principal); J96.21 Acute and chronic respiratory failure with hypoxia; J96.22 Acute and chronic respiratory failure with hypercapnia; I12.9 Hypertensive chronic kidney disease with stage 1 through stage 4 chronic kidney disease, or unspecified chronic kidney disease; E11.22 Type 2 diabetes mellitus with diabetic chronic kidney disease; N18.4 Chronic kidney disease, stage 4 (severe); I35.0 Nonrheumatic aortic (valve) stenosis; Z66 Do not resuscitate; Z51.5 Encounter for palliative care; Z79.4 Long term (current) use of insulin
CPT/HCPCS: 0241U; 36415; 71045; 76770; 80048; 80053; 80069; 82570; 82803; 82947; 83735; 83880; 84145; 84300; 84484; 85025; 92610; 93005; 93010; 94640; 94664; 94762; 96365; 96366; 96367; 96372; 99285-25; A9270; G0378; J0456; J0696; J1650; J1815; J7050